=== PATIENT | female | born 1940 | race Caucasian/White ===

== ENCOUNTER 2017-09-27 06:33 | Day surgery (SDC) | payer OTHER | END 2017-09-27 11:40 | disposition home or self-care (01) | LOC: AMB-ENDOS 06:33 | DX: D12.5 Benign neoplasm of sigmoid colon (principal); D12.3 Benign neoplasm of transverse colon; K57.30 Diverticulosis of large intestine without perforation or abscess without bleeding; K64.1 Second degree hemorrhoids ==